=== PATIENT | male | born 1945 | race Two or more races ===

== ENCOUNTER 2020-02-01 16:48 | Emergency (ER) | payer OTHER ==
[~2020-02-01] VITALS: Ht 172.7 cm; Wt 88.5 kg
[~2020-02-01 16:48] MED LIST: ZANTAC25 MG/1 ML
[2020-02-01] MEDS ORDERED: NEXIUM2.5 MG (17:15)
[2020-02-01] MEDS ORDERED: GAVISCON 80-141 EACH (17:15)
== END 2020-02-01 21:40 | disposition home or self-care (01) ==
LOC: ER 16:48
DX: M25.511 Pain in right shoulder (principal); R07.89 Other chest pain; M62.838 Other muscle spasm; Z03.818 Encounter for observation for suspected exposure to other biological agents ruled out

== ENCOUNTER 2023-02-10 11:26 | Outpatient (CLI) | payer OTHER ==
[~2023-02-10 11:26] MED LIST changes: +GAVISCON 80-141 EACH; +NEXIUM2.5 MG
== END 2023-02-10 11:37 | disposition home or self-care (01) ==
LOC: TOM 11:26
DX: R10.31 Right lower quadrant pain (principal)